=== PATIENT | female | born 1935 | race Caucasian/White ===

== ENCOUNTER 2025-02-10 10:19 | Emergency (ER) | payer OTHER ==
[~2025-02-10] VITALS: Ht 157.5 cm; Wt 55.3 kg
--- NOTE | 2025-02-10 10:46 | ERN ---
ED Note History of Present Illness Stated Complaint: HEAD INJURY POST FALL FROM SITTING Chief Complaint: Head Injury Time Seen by MD: 10:22 Time Seen by Midlevel: 10:25 Dictation: 89-year-old female history of hypertension coming in status post fall. Patient was sitting in the stool when still blood you feel better. Patient has a here then they would id, laceration noted. Negative LOC, no blood thinners. Patient has not no complaints.She is neurologically intact Allergies: Coded Allergies: No Known Drug Allergies (Unverified Allergy, Unknown, 02/10/25) Past Medical History Past Medical History: Hypertension Surgical History: Appendectomy, Hysterectomy, Cholecystectomy Review of System Dictation Constitutional: Negative for fever,chills, and weight loss Eyes: Negative for injury, pain,redness, and discharge ENT: Negative for injury,pain or swelling Cardiovascular: Negative for chest pain, palpitations, and edema Respiratory: Negative for shortness of breath, cough, and wheezing, Abdomen/GI: Negative for abdominal pain, nausea, vomiting, diarrhea, and constipation Back: Negative for injury and pain : Negative for injury, bleeding and discharge MS/Extremity: Negative for injury and deformity Skin: Negative for rash, and discoloration, scalp laceration Neuro: Negative for headache, weakness, numbness, tingling, and seizure Psych: Negative for suicide ideation, homicidal ideation, and hallucinations Review of Systems: was completed Initial Vital Sign VS Vital Signs Date Time Temp Pulse Resp B/P (MAP) Pulse Ox O2 Delivery O2 Flow Rate FiO2 02/10/25 10:21 98.1 76 17 160/75 97 Room Air 0 Physical Exam Dictation General: awake, alert, NAD Head/Face: Normocephalic, atraumatic Eyes: PERRL, EOMI, vision at baseline ENT: oral cavity clear, TMs clear, no signs of infection Neck: Trachea midline, supple, no nuchal rigidity Cardiovascular: RRR, normal S1/S2, No MRGs, no JVD Respiratory: CTAB, no respiratory distress, No rales or wheezes Abdomen: Soft, non-tender, non-distended, normal bowel sounds, no guarding or rebound. Skin: Warm, dry, normal turgor, no rash, about a 4 cm scalp laceration MS/Extremity: Pulses equal, no cyanosis, neurovascular intact, FROM Neuro: COAx4, GCS 15, strength 5/5, CN 2-12 intact, normal cerebellar exam, normal gait, Psych: Normal behavior, mood, and affect normal Results (Laboratory/Radiology) CT Scan Comment: [place] [id number] [place] [id number] IMAGING REPORT Signed PATIENT: SAMANTHA SAMAON MR#: [id number] : 1935 SEX: F AGE: 89 LOCATION: [facility] ORDER 33 STATUS: REG ER REPORT#: [id number] SERVICE REASON: fall, head injury ORDERING PHYSICIAN: EUNICE MILLER CNP PROCEDURE: HEAD WO - CT HEAD/BRAIN W/O CONTRAST EXAM: CT Head Without IV contrast. CLINICAL HISTORY: fall, head injury TECHNIQUE: Axial computed tomography images of the head/brain without intravenous contrast. COMPARISON: None provided. FINDINGS: BRAIN: Mild cerebral atrophy. Mild white matter microvascular ischemic changes. No hemorrhage. VENTRICLES: No hydrocephalus. ORBITS: Postoperative changes of the orbits. SINUSES AND MASTOIDS: The paranasal sinuses and mastoid air cells are clear. BONES: No fracture. SOFT TISSUES: Unremarkable. IMPRESSION: 1. No acute intracranial findings. 2. Mild cerebral atrophy. 3. Mild white matter microvascular ischemic changes. 4. Postoperative changes of the orbits. /[place] DICTATED BY: MADELYN LARA MD DATE: 02/10/251339 ELECTRONICALLY SIGNED BY: MADELYN LARA MD DATE: 02/10/251339 ED Course ED Course Orders Procedure Category Date Status Time Tetanus,Diphtheria PHA 02/10/25 Complete Tox [Adult] (Diphther 11:00 Ct Head/Brain W/O CT 02/10/25 Resulted Contrast 10:33 Current Medications Medications (Trade) Dose Ordered Sig/Tera Route PRN Reason Start Time Stop Time Status Last Admin Dose Admin Tetanus/ Diphtheria Toxoids Adsorbed (DiphthERIA-teTANUS TOXOID [ADULT]/ DECAVAC) 0.5 ml ONCE ONCE IM 02/10/25 11:00 02/10/25 11:56 DC 02/10/25 12:16 Vital Signs Date Time Temp Pulse Resp B/P (MAP) Pulse Ox O2 Delivery O2 Flow Rate FiO2 02/10/25 10:21 98.1 76 17 160/75 97 Room Air 0 Medical Decision Making MDM MDM: 89-year-old female history of hypertension coming in status post fall. Patient was sitting in the stool when still blood you feel better. Patient has a here then they would id, laceration noted. Negative LOC, no blood thinners. Patient has not no complaints.She is neurologically intact. Lack repair note. CT scan is negative. Educated patient she needs to return back in 7-10 days to remove the julienne. Educated on red flag symptoms of when to return back to the emergency room and on wound care. Patient verbalized understanding, answered all questions. Differential diagnosis: Laceration, abrasion, ICH, SDH Rationale: Tests considered and ordered secondary to shared decision making include: Previous outside records reviewed: Old ER visits. Risk of complication and/or morbidity or mortality of patient management: None Medications-Per medication reconciliation Need for hospitalization: Patient does not meet criteria for hospitalization. Need for emergency major/minor surgery: No There are no social concerns with this patient. Prescription drug management Prescriptions will include symptomatic care Patient's prior external medical records from other ER visits were reviewed by me as indicated. Prior testing and results from previous visits were reviewed. Prior tests were taken into account with medical decision making and resource utilization, independent historian/historians were used to obtain complete medical history. I independently interpreted the test that were performed, results were reviewed by me and considered findings on radiology if ordered. Medical management and examination interpretation discussions were had by me with other qualified healthcare professionals as indicated for the patient's care. Procedure Wound Location: head Wound Length (cm): 3 Wound's Depth, Shape: superficial Wound Explored: clean Wound Debrided: minimal Wound Repaired With: julienne Number of Sutures: 3 DX & DISP Disposition: Discharge Departure Impression: Primary Impression: Fall Additional Impression: Scalp laceration Condition: Stable Additional Instructions: For pain you can take Tylenol [id number]. If you develop any severe headache, nausea and vomiting, dizziness, weakness return to the emergency room. Otherwise return to the ER in 7-10 days to remove julienne. Referrals: BLANQUITA BENNETT (PCP) Time of Disposition: 12:51 I have reviewed the case, and I agree with, Diagnosis and Plan EUNICE MILLER [facility] Feb 10, 2025 10:46
--- NOTE | 2025-02-10 12:30 | NUR ---
WOUND CARE WOUND CLEASED BY ARGELIA LEDESMA W/SALINE FOR IRRIGATION AND PEROXIDE
--- NOTE | 2025-02-10 12:41 | HMCIMG ---
EXAM: CT Head Without IV contrast. CLINICAL HISTORY: fall, head injury TECHNIQUE: Axial computed tomography images of the head/brain without intravenous contrast. COMPARISON: None provided. FINDINGS: BRAIN: Mild cerebral atrophy. Mild white matter microvascular ischemic changes. No hemorrhage. VENTRICLES: No hydrocephalus. ORBITS: Postoperative changes of the orbits. SINUSES AND MASTOIDS: The paranasal sinuses and mastoid air cells are clear. BONES: No fracture. SOFT TISSUES: Unremarkable. IMPRESSION: 1. No acute intracranial findings. 2. Mild cerebral atrophy. 3. Mild white matter microvascular ischemic changes. 4. Postoperative changes of the orbits. /[place]
--- NOTE | 2025-02-10 12:52 | NUR ---
SALAZAR: EUNICE LIVINGSTON PLACED 3 SALAZAR TO PT WOUND
[2025-02-10 13:01] VITALS: BP 151/65; PULSE 62; RESP 18; TEMP 98.1; O2SAT 97
== END 2025-02-10 13:09 | disposition home or self-care (01) ==
LOC: EDH 10:19
DX: S01.01XA Laceration without foreign body of scalp, initial encounter (principal); I10 Essential (primary) hypertension; Z90.710 Acquired absence of both cervix and uterus; Z90.49 Acquired absence of other specified parts of digestive tract; W19.XXXA Unspecified fall, initial encounter; W17.89XA Other fall from one level to another, initial encounter; Y93.89 Activity, other specified; Y92.89 Other specified places as the place of occurrence of the external cause; Y99.8 Other external cause status
CPT/HCPCS: 12002; 70450; 90471; 90714; 99284

== ENCOUNTER 2025-02-16 11:26 | Emergency (ER) | payer OTHER, MEDICARE ==
[~2025-02-16] VITALS: Ht 157.5 cm; Wt 54.4 kg
--- NOTE | 2025-02-16 11:44 | ERN ---
ED Note History of Present Illness Stated Complaint: STAPLE REMOVAL Chief Complaint: Suture/Staple Removal Time Seen by MD: 11:30 Time Seen by Midlevel: 11:31 Dictation: 89-year-old female presents to the emergency department due to an requiring removal of julienne from his scalp. She states that she sustained a head injury a days ago wall attempted to sit on a chair that buckle causing her to fall and strike her head against the ground. The patient denies having any complications associated with this. Upon initial evaluation, the patient presents with a normal neurologic examination and in no acute distress. Allergies: Coded Allergies: No Known Drug Allergies (Unverified Allergy, Unknown, 02/10/25) Emergency Care DIRECTOR METABOLISM: None Past Medical History Past Medical History: Hypertension Surgical History: Appendectomy, Hysterectomy, Cholecystectomy PSYCH History: no pertinent psych hx History: Not Applicable RN Note Reviewed/Agreed w/PFSH: Yes Review of System Dictation Skin: Scalp julienne Initial Vital Sign VS Vital Signs Date Time Temp Pulse Resp B/P (MAP) Pulse Ox O2 Delivery O2 Flow Rate FiO2 02/16/25 11:27 97.5 63 18 154/80 97 Room Air Physical Exam Dictation General: awake, alert, NAD Head/Face: Normocephalic, atraumatic Eyes: PERRL, EOMI ENT: Oral mucosa moist Neck: Trachea midline, supple Cardiovascular: RRR, no edema Respiratory: Symmetrical, non-labored Abdomen: Soft, non-tender, non-distended, no guarding. Skin: Julienne present to the scalp area with a total of 3 with edges well approximated along with scab formation and no drainage. MS/Extremity: Pulses equal, no cyanosis, neurovascular intact, FROM Neuro: COAx4, GCS 15, steady gait, Psych: Normal behavior, mood, and affect normal ED Course ED Course Vital Signs Date Time Temp Pulse Resp B/P (MAP) Pulse Ox O2 Delivery O2 Flow Rate FiO2 02/16/25 11:27 97.5 63 18 154/80 97 Room Air Medical Decision Making MDM MDM: Differential diagnosis: Staple removal, wound evaluation. Rationale: Tests considered and ordered secondary to shared decision making include: Previous outside records reviewed: Old ER visits. Risk of complication and/or morbidity or mortality of patient management: None Medications-Per medication reconciliation Need for hospitalization: Patient does not meet criteria for hospitalization. Need for emergency major/minor surgery: No Removal of 3 julienne done successfully for which the patient tolerated well. There are no social concerns with this patient. Prescription drug management Prescriptions will include symptomatic care Patient's prior external medical records from other ER visits were reviewed by me as indicated. Prior testing and results from previous visits were reviewed. Prior tests were taken into account with medical decision making and resource utilization, independent historian/historians were used to obtain complete medical history. I independently interpreted the test that were performed, results were reviewed by me and considered findings on radiology if ordered. Medical management and examination interpretation discussions were had by me with other qualified healthcare professionals as indicated for the patient's care. DX & DISP Disposition: Discharge Departure Impression: Primary Impression: Encounter for staple removal Condition: Stable Referrals: KRISTAL MENDOZA MD (PCP) Time of Disposition: 11:44 MALICK BURK Feb 16, 2025 11:44
[2025-02-16 11:46] VITALS: BP 154/80; PULSE 63; RESP 20; TEMP 97.6; O2SAT 97
== END 2025-02-16 11:53 | disposition home or self-care (01) ==
LOC: EDH 11:26
DX: S01.01XD Laceration without foreign body of scalp, subsequent encounter (principal); Z48.02 Encounter for removal of sutures; I10 Essential (primary) hypertension; Z90.49 Acquired absence of other specified parts of digestive tract; Z90.710 Acquired absence of both cervix and uterus; X58.XXXD Exposure to other specified factors, subsequent encounter
CPT/HCPCS: 99282